=== PATIENT | male | born 1955 | race Caucasian/White ===

== ENCOUNTER → 2018-06-10 | Outpatient (CLI) | payer BC | END | disposition home or self-care (01) | LOC: LABWHC1 10:06 | PROVIDERS: ATTEND Internal Medicine Cardiovascular Disease | DX: I25.10 Atherosclerotic heart disease of native coronary artery without angina pectoris (principal) | CPT/HCPCS: 36415; 83704 ==

== ENCOUNTER → 2018-06-18 | Outpatient (CLI) | payer BC | END | disposition home or self-care (01) | LOC: LABWHC1 09:30 | PROVIDERS: ATTEND Internal Medicine Cardiovascular Disease | DX: I25.10 Atherosclerotic heart disease of native coronary artery without angina pectoris (principal) | CPT/HCPCS: 36415; 83704 ==

== ENCOUNTER → 2020-06-10 | Outpatient (CLI) | payer MEDICARE ==
[2020-06-10 15:17] LABS: Chol/HDL Ratio 2.73; LDL Cholesterol,Calculated 59.2 mg/dL (0.0-131.0); VLDL Calculation 16.8 mg/dL (5.00-40.00)
== END | disposition home or self-care (01) ==
LOC: LABWHC1 09:52
PROVIDERS: ATTEND Internal Medicine Cardiovascular Disease
DX: E78.2 Mixed hyperlipidemia (principal)
CPT/HCPCS: 36415; 80061; 84450; 84460

== ENCOUNTER → 2021-04-24 | Outpatient (CLI) | payer MEDICARE ==
[2021-04-24 17:30] LABS: Chol/HDL Ratio 2.95; LDL Cholesterol,Calculated 63.6 mg/dL (0.0-131.0); VLDL Calculation 22.4 mg/dL (5.00-40.00)
== END | disposition home or self-care (01) ==
LOC: LABWHC1 08:21
PROVIDERS: ATTEND Internal Medicine Cardiovascular Disease
DX: E78.2 Mixed hyperlipidemia (principal)
CPT/HCPCS: 36415; 80061; 84450; 84460

== ENCOUNTER → 2022-06-24 | Outpatient (CLI) | payer MEDICARE ==
[2022-06-24 16:12] LABS: ALT 24 U/L (10-49); AST 30 U/L (14-35); Chol/HDL Ratio 2.88 Ratio; LDL Cholesterol,Calculated 84.6 mg/dL (0.0-131.0); VLDL Calculation 16.54 mg/dL (5.00-40.00)
== END | disposition home or self-care (01) ==
LOC: LABWHC1 08:31
PROVIDERS: ATTEND Internal Medicine Interventional Cardiology
DX: E78.2 Mixed hyperlipidemia (principal)
CPT/HCPCS: 36415; 80061; 84450; 84460

== ENCOUNTER → 2023-06-28 | Outpatient (CLI) | payer MEDICARE ==
[2023-06-29 07:53] LABS: ALT 32 U/L (10-49); AST 26 U/L (14-35); Chol/HDL Ratio 2.73 Ratio; LDL Cholesterol,Calculated 64.7 mg/dL (0.0-131.0)
== END | disposition home or self-care (01) ==
LOC: LABWHC1 13:00
PROVIDERS: ATTEND Internal Medicine Cardiovascular Disease
DX: E78.2 Mixed hyperlipidemia (principal)
CPT/HCPCS: 36415; 80061; 84450; 84460

== ENCOUNTER → 2024-08-02 | Outpatient (CLI) | payer MEDICARE ==
[2024-08-02 15:34] LABS: ALT 22 U/L (10-49); AST 27 U/L (14-35); Chol/HDL Ratio 2.49 Ratio; LDL Cholesterol,Calculated 54.3 mg/dL (0.0-131.0); VLDL Calculation 19.92 mg/dL (5.00-40.00)
== END | disposition home or self-care (01) ==
LOC: LABWHC1 08:44
PROVIDERS: ATTEND Internal Medicine Cardiovascular Disease
DX: E78.2 Mixed hyperlipidemia (principal)
CPT/HCPCS: 36415; 80061; 84450; 84460